=== PATIENT | female | born 1965 | race Caucasian/White ===

== ENCOUNTER → 2024-03-06 16:04 | Outpatient (REF) | payer OTHER, SELFPAY | LOC: WDC 16:04 | PROVIDERS: ATTENDING PHYSICIAN Obstetrics & Gynecology; FAMILY PHYSICIAN Family Medicine | DX: Z12.31 Encounter for screening mammogram for malignant neoplasm of breast (principal) | CPT/HCPCS: 77063; 77067 ==

== ENCOUNTER → 2024-03-17 08:47 | Outpatient (REF) | payer OTHER, SELFPAY | LOC: WDC 08:47 | PROVIDERS: ATTENDING PHYSICIAN Obstetrics & Gynecology; FAMILY PHYSICIAN Family Medicine | DX: R92.8 Other abnormal and inconclusive findings on diagnostic imaging of breast (principal) | CPT/HCPCS: 76642 ==

== ENCOUNTER → 2025-03-09 13:32 | Outpatient (REF) | payer OTHER, SELFPAY | LOC: WDC 13:32 | PROVIDERS: ATTENDING PHYSICIAN Obstetrics & Gynecology | DX: Z12.31 Encounter for screening mammogram for malignant neoplasm of breast (principal) | CPT/HCPCS: 77063; 77067 ==

== ENCOUNTER 2025-10-21 13:44 | Emergency (ER) | payer OTHER, SELFPAY ==
[2025-10-21 13:52] VITALS: BP 156/113
[2025-10-21 13:53] VITALS: BP 150/110
[2025-10-21 15:38] VITALS: BP 171/99
--- NOTE | 2025-10-21 15:46 | ED.GENMED ---
History of Present Illness
General
Chief Complaint: Chest Pain
Time Seen by Provider: 10/21/25 15:37
History of Present Illness
History of Present Illness:
Patient presents to the emergency department with an episode of palpitations. Notes that she has been getting these monthly for the past year. She has not seen a tool keeper yet in November. She reports sudden onset of palpitations and
tachycardia with heart rates going up as high as 210 bpm. He states that these episodes usually last about an hour. Today it lasted for 30 minutes. She is able to break the episodes by bearing down. Denies any leg swelling. Denies any shortness
of breath. Denies any chest pain.
Phy Exam
Physical Exam
Physical Exam:
GENERAL APPEARANCE: NAD, well developed/ well nourished
EYES lids/conjunctiva normal
EARS/NOSE/THROAT Mucous membranes moist, uvula midline without oral pharyngeal erythema, exudate or swelling
HEAD/NECK normocephalic atraumatic, neck is supple.
RESPIRATORY respiratory effort normal, speaks in full sentences, no accessory muscle use. Lungs clear to auscultation without rhonchi, wheezes, rales
CARDIAC Regular rate and rhythm, no edema.
ABDOMINAL Soft, ND/NT. No pulsatile masses on exam, rebound tenderness, Preciado sign or pain over Mcburney's point.
MUSCLES/EXTREMITIES No abnormal range of motion, no swelling.
SKIN Warm, pink and dry. No rashes
NEUROLOGICAL Speech is clear and appropriate. Normal level of consciousness. 5/5 strength in all extremities.
PSYCH Normal mood and affect. Judgement/competence is appropriate
Scores
Heart Score for Chest Pain Patients
STEMI patient?: Not applicable
Course
Orders/Labs/Results
Orders:
Orders
10/21/25 13:55
EKG [Electrocardiogram (*1)] Urgent
Reason for Study: Palpitations
EKG- Treatment ONCE
10/21/25 15:55
Basic Metabolic Panel Urgent
Complete Blood Count/With Diff Urgent
TSH Reflex To Free T4 Urgent
Abnormal Lab Results
10/21/25
15:55
MCHC 32.9 L g/dL
(33.0-37.0)
RDW 18.2 H %
(11.5-14.5)
Monocytes % 11.0 H %
(1.7-9.3)
Calcium 10.6 H mg/dl
(8.4-10.2)
10/21/25 15:55
10/21/25 15:55
Vital Signs
Initial and Last Documented VS:
Initial Vital Signs
Temp Pulse Resp BP Pulse Ox
98.2 F 101 20 156/113 98
10/21/25 13:52 10/21/25 13:52 10/21/25 13:52 10/21/25 13:52 10/21/25 13:52
Last Documented Vital Signs
Temp Pulse Resp BP Pulse Ox
98.2 F 85 16 171/99 98
10/21/25 13:52 10/21/25 16:00 10/21/25 16:00 10/21/25 15:38 10/21/25 16:01
*Pulse Oximetry
SaO2: 98
Oxygen Mode of Delivery: Room air
Patient hypoxic: no
*Critical Care Note
Total Time (30-74mins, 75-104mins- exclusive of procedures): Not Applicable
ED Attending Note
ED Attending Note
ED Attending Note:
Patient with paroxysmal episodes of tachycardia. Suspect tacky dysrhythmia such as SVT, A-fib, atrial flutter. She is currently in sinus rhythm and is asymptomatic. She does have follow-up with cardiology. Will rule out electrolyte or metabolic
abnormalities and monitor in the emergency department for a brief period.
Patient maintained sinus rhythm while in the emergency department. She is asymptomatic and stable for outpatient workup. Will likely need a holter monitor
-
Portions of this chart may have been created with voice recognition software.� Occasional wrong word or��sound alike� substitutions may have occurred due to the inherent limitations of voice recognition software.
Discharge Plan
Interventions
Interventions:
*Risk Screen - Suicide Last Done: 10/21/25 13:50
*General Assessment Last Done: 10/21/25 15:58
*Neglect/Abuse Screening Last Done: 10/21/25 13:50
*ED COVID-19 Vaccine History Last Done: 10/21/25 15:49
*ED Influenza Vaccine History Last Done: 10/21/25 15:49
[facility] Fall Risk Assessment Tool Last Done: 10/21/25 15:58
ED- Cardiac Assessment Last Done: 10/21/25 15:58
ED- Neurological Assessment Last Done: 10/21/25 15:58
ED- Pulmonary Assessment Last Done: 10/21/25 15:58
Discharge Date and Time
Print Language: SAMMARINESE
[2025-10-21 16:04] LABS: Hematocrit 43.4 % (37.0-47.0); Hemoglobin 14.3 g/dL (12.0-16.0); Mean Corp Hgb Conc. 32.9 g/dL (33.0-37.0); Mean Corpuscular Volume 84.6 fL (81.0-99.0); Nucleated Red Blood Cells % 0 %; Platelet Count 314 10^3/uL (130-400); Red Cell Dist. Width 18.2 % (11.5-14.5)
[2025-10-21 16:16] LABS: Blood Urea Nitrogen 14 mg/dl (7-17); Calcium 10.6 mg/dl (8.4-10.2); Carbon Dioxide 26 mmol/L (22-30); Chloride 104 mmol/L (98-107); Glucose 98 mg/dl (70-99); Potassium 4.3 mmol/L (3.5-5.1); Sodium 138 mmol/L (135-145); eGFR > 60.00
== END 2025-10-21 17:05 | disposition home or self-care (01) ==
LOC: EMR 13:44
PROVIDERS: EMERGENCY PHYSICIAN Emergency Medicine
DX: R00.2 Palpitations (principal); I10 Essential (primary) hypertension
CPT/HCPCS: 99284; 80048; 84443; 85025; 93005